=== PATIENT | female | born 1935 | race Caucasian/White ===

== ENCOUNTER → 2024-02-11 13:33 | Outpatient (REF) | payer OTHER, SELFPAY | LOC: RAD 13:33 | PROVIDERS: ATTENDING PHYSICIAN Internal Medicine Gastroenterology; FAMILY PHYSICIAN Family Medicine | DX: K59.00 Constipation, unspecified (principal) | CPT/HCPCS: 74019 ==

== ENCOUNTER → 2024-02-29 09:22 | Outpatient (REF) | payer OTHER, SELFPAY | LOC: RCS 09:22 | PROVIDERS: ATTENDING PHYSICIAN Nuclear Medicine Nuclear Cardiology; FAMILY PHYSICIAN Family Medicine | DX: I48.0 Paroxysmal atrial fibrillation (principal); Z95.2 Presence of prosthetic heart valve | CPT/HCPCS: 93306 ==

== ENCOUNTER → 2024-06-14 08:59 | Outpatient (REF) | payer OTHER, SELFPAY | LOC: RAD 08:59 | PROVIDERS: ATTENDING PHYSICIAN Surgery Vascular Surgery; FAMILY PHYSICIAN Family Medicine | DX: I71.40 Abdominal aortic aneurysm, without rupture, unspecified (principal) | CPT/HCPCS: 76770; 93880 ==

== ENCOUNTER → 2024-06-20 12:22 | Outpatient (REF) | payer OTHER, SELFPAY | LOC: HWRAD 12:22 | PROVIDERS: ATTENDING PHYSICIAN Surgery Vascular Surgery; FAMILY PHYSICIAN Family Medicine | DX: I71.40 Abdominal aortic aneurysm, without rupture, unspecified (principal) | CPT/HCPCS: 74174; Q9967 ==

== ENCOUNTER 2024-08-03 06:12 | Inpatient (IN) | payer OTHER, SELFPAY ==
[2024-07-27 11:33] VITALS: BMI 25.8
[2024-07-27 11:45] LABS: % Basophils 0.6 % (0-2); % Eosinophils 3.5 % (0-6); % Immature Granulocytes 0.3 % (0-0.5); % Lymphocytes 37.2 % (20.5-51.1); % Monocytes 7.4 % (1.7-9.3); Absolute Eosinophils 0.2 10^3/uL (0-0.7); Absolute Lymphocytes 2.4 10^3/uL (1.2-3.4); Absolute Monocytes 0.5 10^3/uL (0.1-0.6); Absolute Neutrophils 3.3 10^3/uL (1.4-6.5); Hematocrit 40.7 % (37.0-47.0); Hemoglobin 12.9 g/dL (12.0-16.0); Mean Corp Hgb Conc. 31.7 g/dL (33.0-37.0); Mean Corpuscular Hgb 27.2 pg (27.0-31.0); Mean Corpuscular Volume 85.9 fL (81.0-99.0); Mean Platelet Volume 11.7 fL (7.4-10.4); Nucleated Red Blood Cells % 0 %; Platelet Count 198 10^3/uL (130-400); Red Blood Cell Count 4.74 10^6/uL (4.20-5.40); Red Cell Dist. Width 15.1 % (11.5-14.5); White Blood Cell Count 6.5 10^3/uL (4.8-10.8)
[2024-07-27 11:51] LABS: INR 1.01; PT 13.3 Sec (11.4-14.6)
[2024-07-27 11:52] LABS: APTT 34.5 Sec (23.4-35.0); Blood Urea Nitrogen 16 mg/dl (7-17); Calcium 9.5 mg/dl (8.4-10.2); Carbon Dioxide 26 mmol/L (22-30); Chloride 101 mmol/L (98-107); Estimated Creatinine Clearance 36 ml/min; Glucose 96 mg/dl (70-99); Potassium 4.2 mmol/L (3.5-5.1); Sodium 139 mmol/L (135-145); eGFR > 60.00
[2024-07-27 12:44] LABS: Glycohemoglobin (HgbA1c) 5.9 % (4.0-5.6)
--- NOTE | 2024-07-28 09:13 | PTCARENOTE ---
[id number] CXR abnormal- Key @ Dr. Michele office notified
[2024-08-03] VITALS (36 sets, daily range): BP systolic 93–156; BP diastolic 45–79; BMI 26.0
[2024-08-03] MEDS: NSS 500 IV (06:43)
[2024-08-03] MEDS: PERIDEX 0.12% ORAL RINSE 15 ML PO (06:43)
[2024-08-03] MEDS: BACTROBAN NASAL 1 GRAM NASAL (06:43)
--- NOTE | 2024-08-03 07:13 | W.SUR.PREOP ---
Pre-Operative Surgical Note
-
I have examined this patient prior to the performance of the scheduled procedure.
The patient's condition is unchanged from the time of the current History and
Physical and the patient is able to undergo the scheduled procedure.
--- NOTE | 2024-08-03 09:23 | W.SUR.POST ---
Surgical Immediate Post Op
Note
Pre Op Diagnosis: AAA
Post Op Diagnosis: AAA
Procedure Performed: EVAR
Primary Surgeon: Landen Noriega MD
chiropractic assistant: JAYLEEN Raymond
Anesthesia: GETA
Estimated Blood Loss: 20 ml
Fluids: See anesthesia flowsheet
Drains/Shunts: N/A
Specimens/Cultures: N/A
Doppler/Duplex/Angio (Y/N): Y
Complications: None
Operative Findings: Successful repair of AAA
[2024-08-03] MEDS: ZOFRAN 4 MG IV (09:50)
[2024-08-03 10:04] LABS: Hematocrit 34.5 % (37.0-47.0); Hemoglobin 11.3 g/dL (12.0-16.0); Mean Corp Hgb Conc. 32.8 g/dL (33.0-37.0); Mean Corpuscular Volume 85.4 fL (81.0-99.0); Mean Platelet Volume 11.7 fL (7.4-10.4); Platelet Count 151 10^3/uL (130-400); Red Blood Cell Count 4.04 10^6/uL (4.20-5.40); Red Cell Dist. Width 15.2 % (11.5-14.5); White Blood Cell Count 8.1 10^3/uL (4.8-10.8)
--- NOTE | 2024-08-03 10:18 | OR.RPT ---
Operative Report
Operative Report
PROCEDURE DATE: 08/03/2024
Preoperative diagnosis: Enlarging infrarenal abdominal aortic aneurysm, now over 5 cm in diameter.
Postoperative diagnosis: Same
Procedure:
1. Endovascular repair of abdominal aortic aneurysm with bifurcated modular endoprosthesis (Beatrice C3 Conformable Excluder with bilateral iliac limb extension.
2. Percutaneous bilateral common femoral artery closure.
3. Supervision and interpretation.
Surgeon: Hari
Heel Seater: Fede, required for all aspects of procedure.
Complications: None
Anesthesia: General
Indications for procedure:
Abdominal aortic aneurysm. Most recent imaging demonstrated significant enlargement. In addition absolute size over 5 cm. Discussed risk/benefit/alternatives of endovascular pair. Complicating factor was infrarenal neck angulation. However we
felt it was reasonable to pursue endovascular repair with Beatrice conformable excluder graft which we felt may take the angulation slightly better. Patient understood all wish to proceed.
Description of procedure:
Patient was identified brought to the operating room placed on the table in supine position. After the adequate administration of anesthesia and perioperative antibiotics she was prepped and draped in the standard surgical fashion. A standard
preoperative timeout was undertaken and everybody was in agreement the plan. Bilateral common femoral artery access was obtained under direct duplex ultrasound guidance. 6 Italian sheaths were placed over 0.035 inch wires. Next, small 1 cm
incisions were made around the sheath entry sites bilaterally. Blunt dissection was undertaken with hemostats to facilitate percutaneous suture delivery. Next, using the ProGlide suture system, percutaneous sutures were deployed at the 10:00 and 2
o'clock position bilaterally in the standard fashion. Suture strands were tagged outside the skin. We exchanged for 11 Italian sheaths bilaterally. Next using a KMP catheter, I guided wires into the supraceliac aorta from bilateral access sites.
On the left side I exchanged out for a pigtail catheter which was positioned in the juxtarenal aorta. The right side I exchanged for an Amplatz wire. The patient was given an appropriate dose of heparin (5000 units). Next I exchanged my
right-sided 11 Italian sheath for a Beatrice dry seal 16 Italian sheath which was advanced into the aorta under fluoroscopy.
I then brought the main body device into place. It was oriented under fluoroscopy in the field before loading it over the wire and inserting it through the right-sided sheath. I had oriented such that the contralateral gate would be oriented
anteriorly intentionally. The main body was a Beatrice C3 Conformable Excluder 23 mm x 14.5 mm x 12 cm length (23mm x 14.5mm x 12cm). Once this was advanced to the level of the juxtarenal aorta, power injection aortography was obtained via the
left-sided pigtail catheter. This was done in the appropriate obliquity based on the CT scan imaging prior (moderate cranial-caudal). The renal arteries were marked on the screen. Next, the right sided dry seal sheath was withdrawn to the level
of the contralateral gate (which as noted was oriented intentionally anteriorly). I confirmed positioning of the contralateral gate and then began deployment of the stent graft just inferior to the left renal artery. I was very happy with its
positioning and deployed it to the level of the contralateral gate which was fully deployed now. I was very satisfied. The right side of the proximal endograft slightly dropped about 1 to 2 mm as expected based on the angulation, but the left side
maintained positioning at the inferior margin of the left renal artery. I performed aortography to confirm and was happy with this positioning. I did not feel I be able to push the right side up any without affecting the left renal artery.
Therefore I was happy with this positioning. The infrarenal neck seemed suitable in length. I then exchanged my pigtail catheter over a floppy Glidewire, and having pulled it down below the contralateral gate I then used a K2 catheter and the
floppy angled hydrophilic Glidewire to cannulate the contralateral gate. Once I did so I was then able to advance my pigtail catheter through the gate, spinning the catheter to confirm that I was in the true lumen of the graft. Next I performed
aortogram again to confirm positioning of the proximal aspect of the stent graft with good filling of the renal arteries.
At this point I then placed an Amplatz wire through the left sided pigtail catheter and perform retrograde pelvic angiogram. This was done in the appropriate obliquity as well. The iliac bifurcation was marked on the screen. I then used a
contralateral limb with a 12 mm x 12cm ([id number]) contralateral iliac limb. This was positioned nicely with suitable overlap in the contralateral gate (3 cm) and the distal aspect just short of the iliac bifurcation. Once I completed this, I
withdrew my sheath on the right side slightly further back in the pelvis. Pelvic angiogram demonstrated the iliac bifurcation and I therefore then released the top constraint of the stent graft, and then deployed the remainder of the ipsilateral
iliac limb. I then withdrew the delivery device. Then, exchanged for a 14.5 mm x 12 cm iliac limb extension ([id number]). Of note, the iliac bifurcation had been marked on the screen. This was then deployed with sufficient overlap and just short
of the iliac bifurcation. Was very happy with this deployment.
Next a molding balloon was used to molded the proximal and distal seal zones as well as the overlap sites. Power injection completion aortography was now performed that demonstrated excellent positioning of the graft. There was excellent filing of
bilateral renal arteries, excellent filling of the stent graft. Good filling of bilateral external and internal iliac arteries. There appeared to be a slight streaming of contrast along the left lateral edge of the graft, but it was not really
filling into the sac. Unclear if this was a subtle type Ia endoleak. Therefore, I inserted the balloon again to balloon mold the proximal seal zone once again. Completion angiogram now demonstrated pretty much resolution of that. I did not
really see any definitive streaming. I could not see any type II endoleak on delayed imaging either. Therefore at this point I was satisfied.. Next I exchanged my pigtail catheter back for a Amplatz wire. Next, I sequentially removed the sheath
while cinching down the percutaneous sutures. This was initially done on the right side and then on the left. Once hemostasis was noted the wire was then withdrawn, the knot was tightened with a knot pusher. Hemostasis was confirmed. The knot
was then locked and the suture strands trimmed. This was done as noted on the right initially and then on the left. Hemostasis was fully achieved bilateral groins with good femoral pulses bilaterally. Protamine was given to reverse the heparin.
The small skin incisions were then closed with 4-0 Monocryl subcuticular stitch and Dermabond was applied. Patient tolerated procedure well. He had palpable DP and PT pulses bilaterally upon completion.
[2024-08-03 10:25] LABS: Blood Urea Nitrogen 15 mg/dl (7-17); Calcium 8.6 mg/dl (8.4-10.2); Carbon Dioxide 25 mmol/L (22-30); Chloride 105 mmol/L (98-107); Estimated Creatinine Clearance 46 ml/min; Glucose 117 mg/dl (70-99); Potassium 4.3 mmol/L (3.5-5.1); Sodium 138 mmol/L (135-145); eGFR > 60.00
--- NOTE | 2024-08-03 10:53 | CON.INTV ---
Consultation
Consultation Request
Date/Time Consultation Requested: 08/03/2024
Date/Time Consultation Performed: 08/03/2024 - 1050
Requesting Provider: JAYLEEN Desouza
Performing Provider: Gavino Glez MD
Reason for Consultation: s/p EVAR
Medical History
-
Chief Complaint: Elective EVAR
History of Present Illness:
89-year-old female with a past medical history of abdominal aortic aneurysm without rupture, bilateral carotid artery stenosis, RA, B-cell lymphoma (in remission), hypertension, hyperlipidemia, Raynaud's phenomena, GERD and CAD s/p CABG x 2 who
presents with elective EVAR. Patient known to the vascular surgery service with Dr. Noriega, last visit on 07/04/2024. Abdominal aortic ultrasound on 06/2024 shows a fusiform AAA measuring 5.1 cm x 4.9 cm. This had increased compared to prior study in
May 2023 where he was 4.5 cm x 4.6 cm. Subsequent CTA abdomen/pelvis on 06/20/2024 showed a 4.8 x 5 cm fusiform aneurysmal dilatation of the infrarenal abdominal aorta with small volume eccentric thrombus. 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 Vascular intervention with open surgical repair versus endovascular repair were discussed, including its risks and benefits. Patient agreed to vascular intervention and today she underwent endovascular repair of AAA
with bifurcated modular endoprosthesis. There were no immediate complications and she was transferred to the ICU postoperatively for further care, with statement distribution clerk services consulted for additional management/recommendations.
When I saw the patient she was resting in bed in no acute distress with her daughter, Laura, and grand-daughter Dalila, at bedside. Patient has no complaints, denying chest pain, SOB, AGUILAR, abdominal pain, nausea, fevers or chills. Vitals show:
Heart rate 63, BP 110/64 and SpO2: 99% on 2 L/min nasal cannula.
PMHx: AAA without rupture, bilateral carotid artery stenosis, rheumatoid arthritis in remission, B-cell lymphoma (in remission), hypertension, hyperlipidemia, CAD s/p CABG x 2, Raynaud's phenomenon, GERD, osteoporosis
PSHx: Bilateral cataract extractions, aortic valve replacement (tissue valve), CABG x 2 (12/2018), neck surgery
Past Medical History
Past Medical History: Other (Above as per HPI)
Past Surgical History: Other (Above as per HPI)
Social History
Tobacco: Non-smoker
Alcohol: None
Drug: None
Family History
Family History: Cancer (Sister (unknown cancer type))
Allergies / Home Medications
Allergies
Allergy/AdvReac Type Severity Reaction Status Date / Time
meperidine HCl [From Demerol] Allergy Hives Verified 08/03/24 06:22
Home Medications
�Medication �Instructions �Recorded �Confirmed �Last Taken �Type
aspirin 81 mg chewable tablet 81 mg PO DAILY Blood pressure 12/05/18 08/03/24 08/03/24 05:00 History
atorvastatin 80 mg tablet 80 mg PO HS 07/24/24 08/03/24 08/01/24 20:00 History
metoprolol succinate 25 mg 37.5 mg PO DAILY 07/24/24 08/03/24 08/03/24 05:00 History
tablet,extended release 24 hr
omega-3s 360 ft-aay-hje-fish oil 1 cap PO DAILY 07/24/24 08/03/24 07/26/24 08:00 History
1,200 mg-D3 1,000 unit capsule
(Fish Oil-Vit D3)
omeprazole 40 mg capsule,delayed 40 mg PO DAILY 07/24/24 08/03/24 07/27/24 08:00 History
release
Review of Systems
-
History Source: Patient
All other systems: Negative unless noted (12 point ROS performed and is negative unless mentioned above.)
Vitals / Labs / Diagnostic Testing
Vital Signs
Temp Pulse Resp BP Pulse Ox
98.1 F 72 26 93/50 94
08/03/24 15:54 08/03/24 18:00 08/03/24 18:00 08/03/24 18:00 08/03/24 18:00
Lab Data
08/03/24 09:56
08/03/24 09:56
Laboratory Results
08/03/24 08/03/24
16:45 17:14
PT Cancelled 14.1
INR Cancelled 1.09
APTT Cancelled 31.9
Diagnostic Testing:
Physical Exam
-
HEENT: Normocephalic and Anicteric
Cardiovascular: S1/S2 and Peripheral Edema (negative)
Respiratory: Clear, Wheeze (negative), Rales (negative) and Rhonchi (negative)
GI: Soft, Non Distended, Non Tender and Normal Bowel Sounds
Neurology: AO x 3 and Tremors (negative)
Skin: Warm and Dry
General: Respiratory Distress (negative), Comfortable, Chills (negative) and Sweats (negative)
Assessment
-
Assessment: 89-year-old female with a past medical history of abdominal aortic aneurysm without rupture, bilateral carotid artery stenosis, RA, B-cell lymphoma (in remission), hypertension, hyperlipidemia, Raynaud's phenomena, GERD and CAD s/p CABG
x 2 who presents with elective EVAR. Patient known to the vascular surgery service with Dr. Noriega, last visit on 07/04/2024. Abdominal aortic ultrasound on 06/2024 shows a fusiform AAA measuring 5.1 cm x 4.9 cm. This had increased compared to prior
study in May 2023 where he was 4.5 cm x 4.6 cm. Subsequent CTA abdomen/pelvis on 06/20/2024 showed a 4.8 x 5 cm fusiform aneurysmal dilatation of the infrarenal abdominal aorta with small volume eccentric thrombus. 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 Vascular intervention with open surgical repair versus endovascular repair were discussed, including its risks and benefits. Patient agreed to vascular intervention and on 08/03/2024 she underwent endovascular
repair of AAA with bifurcated modular endoprosthesis. There were no immediate complications and she was transferred to the ICU postoperatively for further care, with statement distribution clerk services consulted for additional management/recommendations.
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
Impression:
#Enlarging infrarenal AAA without rupture s/p endovascular repair with bifurcated modular endoprosthesis (POD#0)
#Anemia (mild)
#Bibasilar interstitial fibrosis with bronchiectasis (seen on CTA abdomen/pelvis on 06/20/2024) - fibrosis likely related to her Hx of RA (CTD)
#History of multiple pulmonary nodules including 10 mm nodule in the right upper lobe, 15 x 8 mm nodule in the medial right lower lobe with an adjacent 7 mm nodule
#Bilateral carotid artery stenosis
#History of RA in remission
#B-cell lymphoma (in remission)
#CAD s/p CABG x 2
#History of Raynaud's phenomenon
#GERD
Plan:
Postoperative surgical intensive care unit monitoring
Supplemental oxygen to maintain SpO2 >90-94%, and wean down as tolerated until on room air
prn nebulized bronchodilators - not currently bronchospastic
Incentive spirometry encouraged 10x per hour for at least 4 hrs a day
Aspiration precautions
Pain control
Neuro and vascular checks per protocol
Maintain MAP>65
Replete electrolytes with K>4, Mg>2
Maintain euglycemia with goal BG 140-180
Vascular surgery following-correspondence and operative notes reviewed
Transfuse blood products as needed to keep Hb>7g/dL, and plt>50k (given post-operative status)
She has mild progression seen of her bibasilar interstitial fibrosis on most recent CT abdomen/pelvis from 06/20/[address] chest in 07/2021 -> recommend outpatient follow up for full PFTs and continued radiographic imaging. Given
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
DVT prophylaxis
Early nutrition
Early mobilization
Critical care statement: A total of 44 minutes of critical care time was provided for this patient today. This includes management of unstable vital signs, evaluation of the patient at bedside, reviewing the patient's pertinent medical records
including radiographs, microbiology, laboratory evaluations, and discussion with primary team, consultants, pharmacy, nutrition, physical therapy, case management, charge nurse, critical care nursing, and respiratory therapy.
[2024-08-03] MEDS: NSS 1000 IV ×2 (11:19→22:01)
--- NOTE | 2024-08-03 12:19 | PTCARENOTE ---
Addendum entered by Kaylene Henderson RN 08/03/24 13:28:
arterial line removed without issue. area bruised. pain relieved when arterial line removed
Original Note:
patient received from PACU@1115, to monitor, sinus with bbb. c/o nausea, severe pain left wrist at site of radial arterial line insertion. site with bruising. hand warm, Doppler pulses. fingers warm no deficits. bilateral groin sites intact. distal
pulse with Doppler. left pedal with stronger signal than right. abdomen soft, Lopez in place draining yellow urine. instructed on head of bed restrictions, kept flat until 1200. head of bed raised to 25 degrees. tiger text to vascular team to
assess. orders pending. call jefferson in reach
--- NOTE | 2024-08-03 16:50 | PTCARENOTE ---
Dr [email or web address]@ [email or web address]. updated with patient blood pressure trends. orders received. reassessed, basilar crackles. pulse oximeter 93-96 on room air. denies pain. tolerating oral intake. denies nausea. call jefferson in reach
[2024-08-03 17:35] LABS: INR 1.09; PT 14.1 Sec (11.4-14.6)
[2024-08-03 17:36] LABS: APTT 31.9 Sec (23.4-35.0)
[2024-08-03] MEDS: HEPARIN 5000 UNITS SC (19:49)
--- NOTE | 2024-08-03 20:00 | PTCARENOTE ---
Neurovascular checks unchanged. B/L groin surgical sites C/D/I.
[2024-08-03] MEDS: ROXICODONE 5 MG PO (21:20)
[2024-08-03] MEDS: LIPITOR 80 MG PO (21:20)
[2024-08-04] VITALS (7 sets, daily range): BP systolic 97–110; BP diastolic 43–56; BMI 26.5
[2024-08-04] MEDS: MORPHINE SULFATE 2 MG IV (00:18)
--- NOTE | 2024-08-04 01:30 | PTCARENOTE ---
Pt c/o back pain. PRN dose of morphine administered by this RN.
--- NOTE | 2024-08-04 05:00 | PTCARENOTE ---
Upon reassessment pt is resting comfortably. Neurovascular checks unchanged.
[2024-08-04 06:48] LABS: Hemoglobin 10.1 g/dL (12.0-16.0); Mean Corp Hgb Conc. 32.6 g/dL (33.0-37.0); Mean Corpuscular Hgb 28.8 pg (27.0-31.0); Mean Corpuscular Volume 88.3 fL (81.0-99.0); Mean Platelet Volume 11.5 fL (7.4-10.4); Platelet Count 131 10^3/uL (130-400); Red Blood Cell Count 3.51 10^6/uL (4.20-5.40); Red Cell Dist. Width 15.5 % (11.5-14.5); White Blood Cell Count 8.1 10^3/uL (4.8-10.8)
[2024-08-04 06:50] LABS: INR 1.09; PT 14.1 Sec (11.4-14.6)
[2024-08-04 06:51] LABS: APTT 34.3 Sec (23.4-35.0)
[2024-08-04 07:06] LABS: Blood Urea Nitrogen 12 mg/dl (7-17); Calcium 8.5 mg/dl (8.4-10.2); Carbon Dioxide 25 mmol/L (22-30); Chloride 107 mmol/L (98-107); Estimated Creatinine Clearance 46 ml/min; Glucose 97 mg/dl (70-99); Potassium 4.5 mmol/L (3.5-5.1); Sodium 140 mmol/L (135-145); eGFR > 60.00
[2024-08-04] MEDS: LOW STRENGTH ASPIRIN 81 MG PO (08:15)
[2024-08-04] MEDS: HEPARIN 5000 UNITS SC (08:15)
[2024-08-04] MEDS: PROTONIX 40 MG PO (08:15)
--- NOTE | 2024-08-04 08:20 | W.PN.INTV ---
Today's Communication / Plan
Recommendations
Up OOB as tolerated
Postoperative management as per vascular surgery with outpatient follow-up recommended
Pain control
Encourage incentive spirometer use
Outpatient follow-up with pulmonary recommended for history of growing lung nodule in her right upper lobe (measuring [address] chest from 07/2021) as well as CTD�ILD, however she is not interested. She understands the risks of not following
up nor obtaining radiographic surveillance. She knows that this RUL nodule could be cancer but she says she has 'too much on her plate right now and you have to from something.' My pulmonary office information was shared with her if she
changes her mind.
Underground Truck Operator/Pulmonary service will now sign off. Please reconsult if there are any additional questions/concerns, or if patient's respiratory status deteriorates.
Assessment
-
Assessment: 89-year-old female with a past medical history of abdominal aortic aneurysm without rupture, bilateral carotid artery stenosis, RA, B-cell lymphoma (in remission), hypertension, hyperlipidemia, Raynaud's phenomena, GERD and CAD s/p CABG
x 2 who presents with elective EVAR. Patient known to the vascular surgery service with Dr. Noriega, last visit on 07/04/2024. Abdominal aortic ultrasound on 06/2024 shows a fusiform AAA measuring 5.1 cm x 4.9 cm. This had increased compared to prior
study in May 2023 where he was 4.5 cm x 4.6 cm. Subsequent CTA abdomen/pelvis on 06/20/2024 showed a 4.8 x 5 cm fusiform aneurysmal dilatation of the infrarenal abdominal aorta with small volume eccentric thrombus. 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 Vascular intervention with open surgical repair versus endovascular repair were discussed, including its risks and benefits. Patient agreed to vascular intervention and on 08/03/2024 she underwent endovascular
repair of AAA with bifurcated modular endoprosthesis. There were no immediate complications and she was transferred to the ICU postoperatively for further care, with substation designer services consulted for additional management/recommendations.
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
Impression:
#Enlarging infrarenal AAA without rupture s/p endovascular repair with bifurcated modular endoprosthesis (POD#1)
#Anemia (mild)
#Bibasilar interstitial fibrosis with bronchiectasis (seen on CTA abdomen/pelvis on 06/20/2024) - fibrosis likely related to her Hx of RA (CTD)
#History of multiple pulmonary nodules including 10 mm nodule in the right upper lobe, 15 x 8 mm nodule in the medial right lower lobe with an adjacent 7 mm nodule
#Bilateral carotid artery stenosis
#History of RA in remission
#B-cell lymphoma (in remission)
#CAD s/p CABG x 2
#History of Raynaud's phenomenon
#GERD
Plan:
Postoperative surgical intensive care unit monitoring
Maintain SpO2 >90-94% --> currently on room air
prn nebulized bronchodilators - not currently bronchospastic
Incentive spirometry encouraged 10x per hour for at least 4 hrs a day
Aspiration precautions
Pain control
Neuro and vascular checks per protocol
Maintain MAP>65
Replete electrolytes with K>4, Mg>2
Maintain euglycemia with goal BG 140-180
Vascular surgery following-correspondence and operative notes reviewed
Transfuse blood products as needed to keep Hb>7g/dL, and plt>50k (given post-operative status)
Of note, she does have a history of RA but has good mobility of her hands and does not take any medications nor does she see rheumatology.
She has mild progression seen of her bibasilar interstitial fibrosis on most recent CT abdomen/pelvis from 06/20/[address] chest in 07/2021, and also had a growing right upper lobe pulmonary nodule measuring 1 cm from previously [address] in December 2020, and has not had a repeat scan since then. I told her that this could be cancer and she said that she has 'too much on her plate right now and does not want to follow-up anymore with pulmonary and that if she has cancer
she would not likely want to treated with chemotherapy/radiation anyway.' I told her that I am available in the pulmonary office if she changes her mind. All questions were answered and she verbalized understanding.
DVT prophylaxis
Early nutrition
Early mobilization
Patient is being prepared for discharge home. Underground Truck Operator/Pulmonary service will now sign off. Thank you for allowing us to be involved in the care of this patient. Please reconsult if there are any additional questions/concerns, or if patient's
respiratory status deteriorates.
Total time spent today was 42 minutes for this encounter. Time includes reviewing laboratory test/imaging results, reviewing pertinent medical records, obtaining and reviewing medical history, performing an appropriate exam, ordering medications,
tests and procedures. Time also includes documentation of this encounter, coordinating patient care and communicating with other healthcare professionals. Total time does not include separately billed tests performed on this date of service.
Subjective Dataa
Subjective Data
Date of Service:
Date of Service: August 04, 2024
Chief Complaint: Underground Truck Operator Follow Up
Subjective:
Patient was seen and evaluated this morning. No acute overnight events reported. BP 115/54, heart rate 64, on room air breathing comfortably saturating 98%. Sitting in a chair no acute distress. She is being prepared for discharge home today.
She currently denies chest pain, SOB, abdominal pain, nausea, fevers or chills.
Review of Systems
General: Other (Negative unless mentioned above)
Objective Data
Data Reviewed
Vital Signs / I&O / Oxygen:
Vital Signs
Temp Pulse Resp BP Pulse Ox
98.2 F 65 16 100/51 98
08/04/24 08:10 08/04/24 08:37 08/04/24 06:30 08/04/24 08:37 08/04/24 08:10
Intake and Output
08/03/24 08/04/24 08/05/24
06:59 06:59 06:59
Intake Total 2660 / 2740 560 / 560
Output Total 1665 / 1665 100 / 100
Balance 995 / 1075 460 / 460
SaO2 98
Nasal Cannula flow liters per 2
minute
Physical Exam
General: Respiratory Distress (negative), Comfortable, Chills (negative) and Sweats (negative)
HEENT: Normocephalic and Anicteric
Cardiovascular: S1-S2 and Peripheral Edema (negative)
Respiratory: Wheeze (negative), Crackles (Bilaterally from the bases to midlung dolan), Rhonchi (negative) and Non-Labored Respirations
GI: Soft, Non Distended, Non Tender and Normal Bowel Sounds
Neurology: AO x 3 and Tremors (negative)
Skin: Warm, Dry, Cyanosis (negative) and Jaundice (negative)
Labs/Micro/Reports
Lab Data
08/04/24 06:24
08/04/24 06:24
Laboratory Results
08/03/24 08/03/24 08/04/24
16:45 17:14 06:24
PT Cancelled 14.1 14.1
INR Cancelled 1.09 1.09
APTT Cancelled 31.9 34.3
--- NOTE | 2024-08-04 08:24 | W.PN.VS ---
Addendum entered and electronically signed by Landen Noriega MD 08/04/24 08:52:
Seen and examined with AMARILIS Santoro. Agree with findings as noted below. Patient without significant complaints at all. No abdominal pain. Abdomen is soft, nondistended, nontender. Groins are flat bilaterally. Small incisions clean dry and intact
with no hematoma. Feet are warm and pink. Plan/as discussed and noted below.
Original Note:
Today's Communication / Plan
-
Patient seen and evaluated at bedside with Dr. Landen Noriega, below plan reviewed with attending.
Assessment/Plan
-
Assessment: 89-year-old female POD #1 EVAR
Plan:
Discontinue IV fluids
Discontinue Lopez catheter
Wean nasal cannula oxygen as tolerated
OOB to chair with progression to ambulation as tolerated
Possible discharge later this afternoon
Subjective Data
-
Date of Service: August 04, 2024
Patient seen and evaluated at bedside, offers no complaints. Denies pain at bilateral groin sites. Reports tolerating p.o. intake. Denies nausea, vomiting, fever, and chills.
Objective Data
-
Vital Signs
Temp Pulse Resp BP Pulse Ox
98.0 F 62 16 109/53 98
08/04/24 06:08 08/04/24 06:30 08/04/24 06:30 08/04/24 06:00 08/04/24 06:30
Intake and Output
08/03/24 08/04/24 08/05/24
06:59 06:59 06:59
Intake Total 2660 / 2660
Output Total 1665 / 1665
Balance 995 / 995
Intake:
Oral fluids 840 / 840
IV fluids (Total) 1820 / 1820
NSS 300 / 300
Nss 1,000 ml @ 80 mls/hr IV . 1520 / 1520
[id number] MERLYN Rx#:[id number]
Output:
Urine, Lopez 1665 / 1665
Lab Results
08/04/24 06:24
08/04/24 06:24
Calcium 8.5 mg/dl (8.4-10.2) 08/04/24 06:24
Physical Exam
-
AAOx3, no apparent distress
No tachycardia
No dyspnea on 2 L nasal cannula
ABD flat, nontender, nondistended
Bilateral groin puncture sites CDI, no evidence of hematoma, all surrounding compartments soft
Bilateral feet warm, DP and PT Doppler signal present
Lopez draining clear yellow urine
[2024-08-04] MEDS: TOPROL XL 25 MG PO (08:37)
--- NOTE | 2024-08-04 09:12 | PTCARENOTE ---
report received, assessments per work lsit. patient denies pain, feet warm with doppler pulses. groin incisions approximated, slight bruising. lungs with basilar crackles, corbin removed. vascular PAC updated with vital sign trends, orders received.
fluids capped, IVF capped. tolerated am meal, assisted out of bed to chair. call jefferson in reach
--- NOTE | 2024-08-04 11:41 | PTCARENOTE ---
reassessed. patient ambulated in hallway short distance with assist of one. mildy dyspneic with exertion. patient states this is her baseline. assisted to commode. voided small amount cleo urine(missed collection hat in commode). post void residual
9ml
--- NOTE | 2024-08-04 12:50 | CM ---
CM following re: discharge planning.
Reviewed pt's chart, met with pt.
Pt is an 89 year old female, admitted with primary dx of POD #1 EVAR. per vascular surgery, pt most likely will be discharged home today. Pt is aware, expressed her agreement and she stated her will transport home. IMM reviewed, placed on
chart, pt has a copy.
Pt reports she lives with in a 2SH, 2 steps to enter, has 3 supportive children. 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 No DME, VN or SNF history.
PCP: courtney Nj
Pharmacy: [facility]
D/C plan: home no needs. to transport.
--- NOTE | 2024-08-04 14:02 | W.DS.TRANS ---
DC Summary - Beam Press Operator
-
Discharge Instructions:
Discharge Diagnosis/Procedures Endovascular repair of abdominal aortic aneurysm
with bifurcated modular endoprosthesis
Diet As tolerated
Activity No strenuous activity
Driving Restrictions No driving for 1 week
Bathing Restrictions OK to Shower
Instructions:
Stand-Alone Forms: DC Instr - Vascular OR
Changes to Home Medications: No
Discharge Medications:
DC Medications w/original date entered in [employer]
aspirin 81 mg chewable tablet 81 mg PO DAILY Blood Clot Prevention/Tx 12/05/18
atorvastatin 80 mg tablet 80 mg PO HS High Cholesterol 07/24/24
metoprolol succinate 25 mg tablet,extended release 24 hr 37.5 mg PO DAILY Blood Pressure 07/24/24
omega-3s 360 jk-vxq-jgj-fish oil 1,200 mg-D3 1,000 unit capsule (Fish Oil-Vit D3) 1 cap PO DAILY Supplement 07/24/24
omeprazole 40 mg capsule,delayed release 40 mg PO DAILY GERD 07/24/24
Home Medication Changes
Pending Results: No
== END 2024-08-04 14:58 | disposition home or self-care (01) | DRG 269 ==
LOC: ICU 06:12
PROVIDERS: Nurse Practitioner; ADMITTING PHYSICIAN Surgery Vascular Surgery; CONSULT PHYSICIAN Internal Medicine Critical Care Medicine; FAMILY PHYSICIAN Family Medicine; OTHER PHYSICIAN Nuclear Medicine Nuclear Cardiology
PROC: 04V03DZ Restriction of Abdominal Aorta with Intraluminal Device, Percutaneous Approach (ICD-10-PCS; 2024-08-03)
DX: I71.43 Infrarenal abdominal aortic aneurysm, without rupture (principal); C85.1A Unspecified B-cell lymphoma, in remission; I65.23 Occlusion and stenosis of bilateral carotid arteries; M06.9 Rheumatoid arthritis, unspecified; I10 Essential (primary) hypertension; K21.9 Gastro-esophageal reflux disease without esophagitis; I25.10 Atherosclerotic heart disease of native coronary artery without angina pectoris; I73.00 Raynaud's syndrome without gangrene; M81.0 Age-related osteoporosis without current pathological fracture; J47.9 Bronchiectasis, uncomplicated; J84.10 Pulmonary fibrosis, unspecified; E78.5 Hyperlipidemia, unspecified; D64.9 Anemia, unspecified; Z79.82 Long term (current) use of aspirin; R91.1 Solitary pulmonary nodule; Z79.899 Other long term (current) drug therapy; Z95.1 Presence of aortocoronary bypass graft; Z95.3 Presence of xenogenic heart valve
CPT/HCPCS: 34705; 34713; 36415; 71045; 71046; 80048; 83036; 85025; 85027; 85610; 85730; 86850; 86900; 86901; 93005; C1725; C1760; C1769; C1892; C1894; Q9967

== ENCOUNTER → 2024-08-22 09:21 | Outpatient (REF) | payer OTHER, SELFPAY | LOC: HWRAD 09:21 | PROVIDERS: ATTENDING PHYSICIAN Registered Nurse; FAMILY PHYSICIAN Family Medicine | DX: I71.40 Abdominal aortic aneurysm, without rupture, unspecified (principal) | CPT/HCPCS: 74174; Q9967 ==

== ENCOUNTER → 2025-02-13 10:09 | Outpatient (REF) | payer OTHER, SELFPAY | LOC: RCS 10:09 | PROVIDERS: ATTENDING PHYSICIAN Nuclear Medicine Nuclear Cardiology; FAMILY PHYSICIAN Family Medicine | DX: Z95.2 Presence of prosthetic heart valve (principal) | CPT/HCPCS: 93306 ==

== ENCOUNTER 2025-02-26 11:19 | Emergency (ER) | payer OTHER, SELFPAY ==
[2025-02-26] VITALS (9 sets, daily range): BP systolic 146–201; BP diastolic 78–101; BMI 22.0
[2025-02-26 11:25] LABS: Glucose - Point of Care 138 mg/dl (70-99)
--- NOTE | 2025-02-26 12:02 | CON.NEURO ---
Documented by User: Stevan Rdz MD 02/26/25 12:43
Neuro Assessment/Plan
Assessment
Acute stroke Left MCA
trace aphasia.
patient given TNK, afterwards she felt aphasia was a little bit worse, and there is a subtle right facial droop
CTA head/neck showing 0.6 cm clot in left MCA M1/M2 junction
Plan
fly to [facility] for possible thrombectomy
Consultation
Order
Date of Consultation: 02/26/25
Requesting Provider: Mo Guy
Reason for Consult: Stroke alert
Subjective/Objective
Subjective Data
Date of Service: February 26, 2025
89 year old woman h/o right carotid endarterectomy, Rheumatoid arthritis, B-cell lymphoma, retrograde hematoma, hypertension, hyperlipidemia, coronary artery disease, lymphoma, Raynaud's, GERD, and osteoporosis, presenting with acute stroke. sudden
onset 10:30 am with aphasia, was mute, noted right arm symptoms. At baseline patient is very sharp and speaks clearly
Objective Data
Vital Signs
Temp Pulse Resp BP Pulse Ox
36.7 C 71 16 148/101 100
02/26/25 11:23 02/26/25 11:23 02/26/25 11:23 02/26/25 11:23 02/26/25 11:23
Patient Allergies
meperidine HCl [From Demerol] Allergy (Verified 08/03/24 06:22)
Hives
CVA Assessment
Onset of Stroke Symptoms
Onset of symptoms known: Yes
Date of onset of symptoms: 02/26/25
Time of onset of symptoms: 10:30
NIH Stroke Score
Level of Consciousness: 0 - Alert
LOC Questions: 0-Answers both correctly
LOC Commands: 0-Performs both correctly
Best Horizontal Gaze: 0-Normal
Visual Velasquez: 0=Normal, no visual loss
Facial Palsy: 0=Normal, symmetrical
Motor - Right Arm: 0=No drift 10 seconds
Motor - Left Arm: 0=No drift 10 seconds
Motor - Right Le-No drift 5 seconds
Motor - Left Le-No drift 5 seconds
Limb Ataxia: 0-Absent
Sensation: 0-Normal
Best Language: 1-Mild aphasia
Dysarthria: 0-Normal
Extinction and Inattention: 0-No abnormality
NIH Total Score:: 1
Tenecteplase Contraindications
Inclusion and Exclusion criteria reviewed: Yes
Physical Exam
-
AAOx3, speech clear, slow with identifying pictures
VFF, EOMI, face symmetric
full strength b/l UE/LE
sensation intact to touch
Medications
-
Active Medications
Generic Name Dose Route Start Last Admin
Trade Name Frevladislav PRN Reason Stop Dose Admin
Tenecteplase 14 mg/ Device 2.8 mls @ 2,016 mls/hr 02/26/25 12:01
IV 02/26/25 12:02
NOW STA
Protocol
Home Medications
�Medication �Instructions �Recorded
aspirin 81 mg chewable tablet 81 mg PO DAILY Blood Clot 12/05/18
Prevention/Tx
atorvastatin 80 mg tablet 80 mg PO HS High Cholesterol 07/24/24
omega-3s 360 zl-sdh-atl-fish oil 1 cap PO DAILY Supplement 07/24/24
1,200 mg-D3 1,000 unit capsule
(Fish Oil-Vit D3)
omeprazole 40 mg capsule,delayed 40 mg PO DAILY GERD 07/24/24
release
metoprolol succinate 25 mg 37.5 mg (1.5 x 25 mg) PO DAILY 08/04/24
tablet,extended release 24 hr Blood Pressure #90 tabs

Documented by User: Mo Guy DO 02/26/25 12:13
CVA Assessment
NIH Stroke Score
NIH Total Score:: 1
[2025-02-26] MEDS: TNKASE 2.8 MG IV (12:10)
--- NOTE | 2025-02-26 12:14 | ED.CVA ---
History of Present Illness
General
Chief Complaint: CVA/TIA Symptoms
Source: patient and family
Exam Limitations: clinical condition
Time Seen by Provider: 02/26/25 11:28
Onset of Stroke Symptoms
Onset of symptoms known: Yes
Date of onset of symptoms: 02/26/25
History of Present Illness
History of Present Illness:
89-year-old female who presents after she started around 10:30 with acute changes to her speech. Daughter states that the patient's called her to come evaluate her after he started having speech changes. The patient states she was fine
this morning and around 10:30 AM started to have noticed speech changes. She denies headache. She also started noticed a weird symptom in her right arm. Daughter arrived and realize she was not speaking normally. Daughter states that she is
typically very sharp. No chest pain. Does have an extensive history including aortic stenosis and coronary disease. Has had a carotid endarterectomy in the past
Past History
Past History
ED Past Medical History: CAD, HTN, Hypercholesterolemia, Valvular disease and Other
ED Past Surgical History: Cardiac (Coronary artery bypass graft, valve replacement) and Other (Carotid endarterectomy, right)
Social History
Tobacco: Non-smoker
Alcohol: None
Drug: None
Living: with family
Employment: Retired
Family History
Family History: Hypertension
Phy Exam
Physical Exam
Physical Exam:
CONSTITUTIONAL Patient alert and oriented to person, place and time. Well-appearing. Vital signs reviewed.
HEAD atraumatic, normocephalic.
EYES eyelids normal to inspection, Extraocular muscles intact, Conjunctiva normal, Sclera normal.
NECK normal range of motion, Trachea midline, no jugular venous distention.
RESPIRATORY CHEST No respiratory distress noted, Chest expansion equal
BACK normal inspection, no obvious deformities
UPPER EXTREMITY range of motion normal, Motor strength normal, no cyanosis, no edema.
LOWER EXTREMITY range of motion normal, Motor strength normal, no cyanosis, no edema.
NEURO slight right facial droop noted, no pronator drift noted. Lower extremity strength is normal. Is able to name all the items on the stroke scale picture card. Question very slight aphasia noted. No dysarthria. Normal [id number].
SKIN skin warm, dry, and normal in color.
Scores
NIH Stroke Score
Level of Consciousness: 0 - Alert
LOC Questions: 0-Answers both correctly
LOC Commands: 0-Performs both correctly
Best Horizontal Gaze: 0-Normal
Visual Velasquez: 0=Normal, no visual loss
Facial Palsy: 1=Minor paralysis
Motor - Right Arm: 0=No drift 10 seconds
Motor - Left Arm: 0=No drift 10 seconds
Motor - Right Le-No drift 5 seconds
Motor - Left Le-No drift 5 seconds
Limb Ataxia: 0-Absent
Sensation: 0-Normal
Best Language: 1-Mild aphasia
Dysarthria: 0-Normal
Extinction and Inattention: 0-No abnormality
NIH Total Score:: 2
Course
Orders/Labs/Results
Orders:
Orders
02/26/25 11:38
CT HEAD STROKE ALERT W/o Cont Urgent
Comment:
Reason For Exam: speech disturbance, RUE weakness
CT HEAD/NECK ANG STROKE ALERT Urgent
Comment:
Reason For Exam: speech disturbance, RUE weakness
02/26/25 11:43
Electrocardiogram (*1) Stat
Reason for Study: Other
Other Reason for Exam: neuro symptoms
Cardiac Monitoring- Treatment ONCE
EKG- Treatment ONCE
02/26/25 12:01
Tenecteplase [Tnkase] 14 mg Syringe [Syringe Non-Pump] 0 ml IV NOW
Provider explained risk/benefits to patient &/or caregiver?: Yes
Blood pressure: 148/101
02/26/25 12:36
Complete Blood Count/With Diff Urgent
PTT Urgent
Prothrombin Time Urgent
Troponin I Urgent
02/26/25 12:56
Comprehensive Metabolic Panel Urgent
02/26/25 13:05
Speech Screening from Jen[facility] Routine
Abnormal Lab Results
02/26/25
11:23
POC Glucose 138 H mg/dl
(70-99)
Vital Signs
Initial and Last Documented VS:
Initial Vital Signs
Temp Pulse Resp BP Pulse Ox
98.1 F 71 16 148/101 100
02/26/25 11:23 02/26/25 11:23 02/26/25 11:23 02/26/25 11:23 02/26/25 11:23
Last Documented Vital Signs
Temp Pulse Resp BP Pulse Ox
98.5 F 78 28 146/88 93
02/26/25 13:00 02/26/25 13:15 02/26/25 13:15 02/26/25 13:12 02/26/25 13:15
MDM/Problems Addressed
Differential Diagnosis Includes:
Acute CVA, electrolyte disturbance, UTI, ME
MDM/Problems Addressed:
Acute CVA
*Radiology
Radiology exam reviewed: radiology read reviewed
*Pulse Oximetry
Patient hypoxic: no
*Critical Care Note
Total Time (30-74mins, 75-104mins- exclusive of procedures): 60 minutes
Data Reviewed
Source: patient and family
Further Testing Considered But Not Given:
Considered CT PE but as per neurology hold off for now.
Patient Management
Discussion with other providers: Hospitalist and Manager Shell (Neurology)
Escalation/DeEscalation of care consider admission/obs:
89-year-old female acutely presents with difficulty with her speech. Does have noted slight right facial droop. On reevaluation after CT speech disturbance persists. Seen by neurology who recommends TNK after discussion with family. CTA noted.
Admit to ICU
Update Note
Update Note:
1236: NEuro reviewed CTA again, wants t/f to [facility] for thrombectomy consideration. on hold now
1246: Patient case discussed with [facility] neuro fellow. He will review images and call back
Just prior to the patient leaving the patient does seem to be getting worse with her aphasia. Case was again discussed with neurology at [facility] who will evaluate immediately upon her arrival. Patient does not have a headache I do not suspect
hemorrhage from TNK. Patient was on the litter for transfer to helicopter
ED Attending Note
-
Portions of this chart may have been created with voice recognition software.� Occasional wrong word or��sound alike� substitutions may have occurred due to the inherent limitations of voice recognition software.
Discharge Plan
Departure
Patient Disposition: Acute Care Hospital
Date of Disposition: 02/26/25
Time of Disposition: 12:37
Admit to: ICU
Discharge Problem:
Acute cerebrovascular accident (CVA)
Prescriptions:
No Action
aspirin 81 MG tablet,chewable
81 mg PO DAILY
atorvastatin 80 mg Tablet
80 mg PO HS
omeprazole 40 mg Capsule,Delayed Release(Dr/Ec)
40 mg PO DAILY
gjswt-5t-etj-epa-fish oil-D3 [Fish Oil-Vit D3] 360 mg-1,200 mg -1,000 unit Capsule
1 cap PO DAILY
metoprolol succinate 25 MG tablet extended release 24 hr
37.5 mg PO DAILY Qty: 90 0RF
Rx Instructions:
resume home dose
acetaminophen [Tylenol] 325 mg Tablet
650 mg PO Q6HPRN PRN (Reason: mild pain)
amlodipine [Norvasc] 5 mg Tablet
5 mg PO DAILY
Repatha SureClick 140 mg/mL Pen Injector
140 mg SC Q2W
Referrals:
Jacob Nj MD [Family Provider] -
Hospital Transfer
Other hospital: [facility]
I certify that the patient requires transfer: Yes
Discussed case with accepting physician: Violetta
Reason for transfer: specialties available
Interventions
Interventions:
*Risk Screen - Suicide Last Done: 02/26/25 11:25
*Neglect/Abuse Screening Last Done: 02/26/25 11:25
*Nursing Disposition Last Done: 02/26/25 13:40
ED- Pulmonary Assessment Last Done: 02/26/25 11:57
ED- Neurological Assessment Last Done: 02/26/25 12:07
ED- Cardiac Assessment Last Done: 02/26/25 11:57
Discharge Date and Time
Discharge Date/Time: 02/26/25 13:43
Print Language: PALESTINIAN
[2025-02-26 12:59] LABS: APTT 29.7 Sec (23.4-35.0); INR 0.95
[2025-02-26 13:11] LABS: Troponin I 0.028 ng/ml
== END 2025-02-26 13:43 | disposition short-term general hospital (02) ==
LOC: EMR 11:19
PROVIDERS: EMERGENCY PHYSICIAN Emergency Medicine; FAMILY PHYSICIAN Family Medicine
DX: I63.9 Cerebral infarction, unspecified (principal); I25.10 Atherosclerotic heart disease of native coronary artery without angina pectoris; I10 Essential (primary) hypertension; E78.00 Pure hypercholesterolemia, unspecified; Z95.1 Presence of aortocoronary bypass graft; Z95.2 Presence of prosthetic heart valve; Z88.5 Allergy status to narcotic agent; Z85.72 Personal history of non-Hodgkin lymphomas; M06.9 Rheumatoid arthritis, unspecified
CPT/HCPCS: 99291; 96374; 70450; 70496; 70498; 82962; 84484; 85610; 85730; 93005; J3101; Q9967

== ENCOUNTER → 2025-05-01 08:45 | Outpatient (REF) | payer OTHER, SELFPAY | LOC: RAD 08:45 | PROVIDERS: ATTENDING PHYSICIAN Surgery Vascular Surgery; FAMILY PHYSICIAN Family Medicine | DX: I71.40 Abdominal aortic aneurysm, without rupture, unspecified (principal) | CPT/HCPCS: 76770 ==

== ENCOUNTER → 2025-07-12 10:55 | Outpatient (REF) | payer OTHER, SELFPAY ==
[2025-07-12 10:28] LABS: Glucose 108 mg/dl (70-99)
== END ==
LOC: PET 10:55
PROVIDERS: ATTENDING PHYSICIAN Internal Medicine Hematology & Oncology
DX: C85.10 Unspecified B-cell lymphoma, unspecified site (principal)
CPT/HCPCS: 36415; 78815; 82947; A9552